=== PATIENT | female | born 1975 | race Caucasian/White ===

== ENCOUNTER 2017-12-03 05:19 | Day surgery (SDC) | payer OTHER ==
[2017-12-01 17:12] VITALS: BMI 22.6
[2017-12-03] MEDS ORDERED: MIDAZOLAM HCL 2 MG/2 ML SINGLE DOSE VIAL ONE (08:04)
[2017-12-03] MEDS ORDERED: PROPOFOL 20 ML ONE (08:09)
[2017-12-03] MEDS ORDERED: SUCCINYLCHOLINE CHLORIDE 200 MG/10 ML VIAL ONE (08:09)
[2017-12-03] MEDS ORDERED: DEXAMETHASONE SOD PHOSPHATE 4 MG/1 ML VIAL ONE (08:28)
[2017-12-03] MEDS ORDERED: KETOROLAC TROMETHAMINE 30 MG/1 ML VIAL ONE (08:28)
[2017-12-03] MEDS ORDERED: LIDOCAINE HCL/PF 2% SDV 5ML VIAL ONE (08:28)
[2017-12-03] MEDS ORDERED: ONDANSETRON 4 MG/2 ML VIAL IVPUSH PRN ×2 (08:38→09:02)
[2017-12-03] MEDS ORDERED: IBUPROFEN 800 MG/8 ML IJ IVPB PRN (08:38)
[2017-12-03] MEDS ORDERED: IBUPROFEN 600 MG TABLET (FP) PO PRN (08:38)
[2017-12-03] MEDS ORDERED: oxyCODONE HCL 5 MG TABLET PO PRN ×2 (08:38→09:02)
[2017-12-03] MEDS ORDERED: ELECTROLYTE-148 SOLN 1,000 ML IV SCH (08:45)
[2017-12-03] MEDS ORDERED: PROMETHAZINE HCL 25 MG/1 ML VIAL IVPB PRN (09:02)
--- NOTE | 2017-12-03 09:10 | OP ---
DATE OF OPERATION: 12/03/2017 PREOPERATIVE DIAGNOSIS: Menometrorrhagia, endometrial polyp. POSTOPERATIVE DIAGNOSIS: Menometrorrhagia, endometrial polyp. PROCEDURE: Hysteroscopy, dilatation and curettage, and polypectomy. SURGEON: Santiago Harrell MD ANESTHESIA: General. ANESTHESIOLOGIST: Debbie Quinones MD ESTIMATED BLOOD LOSS: 10 mL. OPERATIVE PROCEDURE: Patient was taken to the operating room, had adequate general anesthesia in the dorsal lithotomy position. Examination under anesthesia revealed external genitalia to be normal. Vagina was normal. Cervix was clean, no gross lesion. Uterus was prominent, anteverted, and globular. Adnexa, no masses were palpable. Then, with a weighted speculum in the vagina, anterior lip of the cervix was grasped with a single-tooth tenaculum. Cervix was slightly dilated. Uterine cavity was sounded to 9 cm. Then, hysteroscope was introduced. Visualization of the endocervical canal appeared to be normal. Uterine cavity was enlarged. Both cornual region was identified. There were 2 polyps at the fundal area of the uterus, each about 1-2 cm. No submucous myoma was seen. Then, polyps were removed. Then, endometrial curetting was done. Patient tolerated the procedure well, left the OR in good condition. SANTIAGO HARRELL M.D. [id number]
[2017-12-03] MEDS ORDERED: LACTATED RINGERS SOLUTION 1,000 ML IV SCH (09:15)
[2017-12-03 12:14] VITALS: TEMP 98
[2017-12-03 13:48] VITALS: BP 120/81; PULSE 70
--- NOTE | 2017-12-06 18:28 | PATH ---
Surgical Pathology Report Patient Name: EDWARD ALLEN [facility]. Rec. #: [id number] /Age/Gender: 1975 (Age: 42) / F Account: [id number] Location: [facility] SURGICAL Taken: 12/03/2017 Received: 12/03/2017 Reported: 12/06/2017 Physicians: Santiago Harrell M.D. Specimen(s) Received ENDOMETRIAL CURETTINGS Clinical History Endometrial polyp Final Diagnosis ENDOMETRIAL CURETTINGS, DILATION AND CURETTAGE: FRAGMENTS OF PROLIFERATIVE ENDOMETRIUM. Electronically Signed Nevaeh Alves M.D. Gross Description Received in formalin labeled "endometrial curettings," is a 0.8 x 0.7 x 0.2 cm aggregate of robles soft tissue fragments. The formalin is a filtered and the specimen is entirely submitted in one cassette. saudi/12/03/2017
== END 2017-12-03 13:00 | disposition home or self-care (01) ==
LOC: JASU-SURG 05:19
PROVIDERS: ATTEND Obstetrics & Gynecology
PROC: 0UB97ZX Excision of Uterus, Via Natural or Artificial Opening, Diagnostic (ICD-10-PCS; principal; 2017-12-03 08:00)
PROC: 0UDB8ZX Extraction of Endometrium, Via Natural or Artificial Opening Endoscopic, Diagnostic (ICD-10-PCS; 2017-12-03 08:00)
DX: N92.1 Excessive and frequent menstruation with irregular cycle (principal); N84.0 Polyp of corpus uteri
CPT/HCPCS: 88305-TC; 94760